=== PATIENT | male | born 1975 | race Caucasian/White ===

== ENCOUNTER 2024-11-14 06:13 | Emergency (ER) | payer BC ==
[~2024-11-14] VITALS: Ht 182.9 cm; Wt 90.7 kg
[2024-11-14 06:43] LABS: BASO # 0.1 10^3/uL (0.0-0.2); BASO % 0.7 % (0.0-1.0); EOS # 0.2 10^3/uL (0.0-0.5); EOS % 1.5 % (0.0-3.0); HEMATOCRIT 50.7 % (42.0-52.0); LYMPH # 2.5 10^3/uL (1.5-5.0); LYMPH % 18.2 % (24.0-44.0); MEAN CORPUSCULAR HEMOGLOBIN 32.7 pg (27.0-33.0); MEAN CORPUSCULAR HGB CONC 35.5 g/dl (32.0-36.5); MEAN CORPUSCULAR VOLUME 92.2 fl (80.0-96.0); MONO # 0.6 10^3/uL (0.0-0.8); MONO % 4.1 % (2.0-8.0); NEUTROPHILS # 10.1 10^3/uL (1.5-8.5); NEUTROPHILS % 75.1 % (36.0-66.0); PLATELET COUNT, AUTOMATED 237 10^3/uL (150-450); WHITE BLOOD COUNT 13.5 10^3/uL (4.0-10.0)
[2024-11-14 07:06] LABS: BLOOD UREA NITROGEN 23 MG/DL (9-23); CALCIUM LEVEL 9.5 MG/DL (8.5-10.1); CARBON DIOXIDE LEVEL 23 MMOL/L (20-31); CHLORIDE LEVEL 108 MMOL/L (98-107); CREATININE FOR GFR 0.98 MG/DL (0.70-1.30); GLOMERULAR FILTRATION RATE > 60.0 (>56); GLUCOSE, FASTING 140 MG/DL (60-100); POTASSIUM SERUM 4.5 MMOL/L (3.5-5.1); SODIUM LEVEL 140 MMOL/L (136-145)
[2024-11-14] MEDS: KETOROLAC 30 MG/ML 1ML VIAL IV ONE ×2 (07:24→09:38)
[2024-11-14] MEDS: MORPHINE 4 MG/ML 1ML VIAL IV ONE ×2 (07:24→09:00)
[2024-11-14] MEDS: LR 1,000 ML IV ONE (07:25)
[2024-11-14 08:42] LABS: KETONE, URINE AUTO RFX 1+ mg/dL (NEGATIVE); MUCUS, URINE RFX LARGE (NEGATIVE); NITRITE, URINE AUTO RFX NEGATIVE (NEGATIVE); RBC, URINE AUTO RFX 15 /HPF (0-3); SQUAM EPITHELIAL CELL UR AURFX 1 /HPF (0-6); WBC, URINE AUTO RFX 3 /HPF (0-3)
[2024-11-14 09:01] LABS: LEUKOCYTE ESTERASE UR AUTO RFX TRACE (NEGATIVE)
[2024-11-14] MEDS: HYDROMORPHONE HCL 0.5 MG/ 0.5 ML SYRINGE IV ONE (09:38)
[2024-11-14 09:52] LABS: Trichomonas vaginalis (AMP) NOT DETECTED (NEGATIVE)
[2024-11-14 10:15] LABS: GC DNA AMPLIFICATION NEGATIVE (NEGATIVE)
[2024-11-14 10:45] VITALS: BP 136/80; TEMP 97.4; O2SAT 91
[2024-11-14] MEDS ORDERED: FLOM0.4C39 PO (11:02)
[2024-11-14] MEDS ORDERED: ONDA-282 PO (11:03)
[2024-11-14] MEDS ORDERED: IBUP-1022 PO (11:03)
[2024-11-14] MEDS ORDERED: PERC5TAB12 PO (11:04)
[2024-11-14 11:32] LABS: ALKALINE PHOSPHATASE 93 U/L (40-129); ALT/SGPT 26 U/L (7.0-40); AST/SGOT 22 U/L (<34); BILIRUBIN,TOTAL 0.6 MG/DL (0.3-1.2); TOTAL PROTEIN 7.8 G/DL (5.7-8.2)
== END 2024-11-14 11:15 | disposition home or self-care (01) ==
LOC: EDBD 06:13 → M ED 06:13
DX: I10 Essential (primary) hypertension (principal); N23 Unspecified renal colic; N13.30 Unspecified hydronephrosis; R00.1 Bradycardia, unspecified; F17.200 Nicotine dependence, unspecified, uncomplicated; F19.10 Other psychoactive substance abuse, uncomplicated; Z79.1 Long term (current) use of non-steroidal anti-inflammatories (NSAID); Z79.83 Long term (current) use of bisphosphonates; Z79.899 Other long term (current) drug therapy
CPT/HCPCS: 71045; 74176; 76870; 80053; 81001; 85025; 87086; 87661; 87810; 87850; 93005; 93976; 96374; 96375; 96376; 99284; J1171; J1885